=== PATIENT | male | born 1955 | race Hispanic/Latino ===

== ENCOUNTER 2016-10-01 17:27 | Emergency (ER) | payer OTHER ==
[~2016-10-01] VITALS: Ht 175.3 cm; Wt 99.8 kg
[2016-10-01 17:37] VITALS: BP 142/84
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
[2016-10-01] MEDS ORDERED: CYCLOBENZAPRINE5 M2 PO (19:10)
== END 2016-10-01 19:17 ==
LOC: ERH 17:27
DX: S16.1XXA Strain of muscle, fascia and tendon at neck level, initial encounter (principal); V49.40XA Driver injured in collision with unspecified motor vehicles in traffic accident, initial encounter; Y92.410 Unspecified street and highway as the place of occurrence of the external cause
CPT/HCPCS: 72050